=== PATIENT | male | born 1975 | race Caucasian/White ===

== ENCOUNTER 2023-05-18 07:48 | Emergency (ER) | payer BC ==
[2023-05-18] MEDS ORDERED: Tetracaine HCl/PF 0.5% 4 ML Bottle EYERT STA (08:12)
[2023-05-18] MEDS ORDERED: Fluorescein 1 MG Ophth Strip EYERT ONE (08:13)
[2023-05-18 09:06] LABS: BASOPHILS PERCENT AUTO 0.3 % (0.0-1.5); EOSINOPHILS ABSOLUTE AUTO 0.4 K/uL (0.0-0.7); HEMATOCRIT 45.3 % (38.0-50.0); HEMOGLOBIN 15.8 g/dL (13.0-17.0); LYMPHOCYTES ABSOLUTE AUTO 2.3 K/uL (0.6-2.4); LYMPHOCYTES PERCENT AUTO 29.7 % (16.0-40.0); MEAN CORPUSCULAR HEMOGLOBIN 31.2 pg (27.0-32.0); MEAN CORPUSCULAR HGB CONC 34.9 g/dL (31.0-37.0); MEAN CORPUSCULAR VOLUME 89.5 fL (80.0-98.0); MONOCYTES ABSOLUTE AUTO 0.9 K/uL (0.0-0.8); NEUTROPHILS ABSOLUTE AUTO 4.2 K/uL (1.4-5.7); PLATELET COUNT,PLT 227 K/uL (150-400); RED BLOOD CELL COUNT 5.06 M/uL (4.50-5.90); WHITE BLOOD CELL COUNT,WBC 7.79 K/uL (4.0-11.0)
[2023-05-18 09:28] LABS: A/G RATIO 1.2 (0.9-1.6); ALBUMIN 3.9 g/dL (3.4-5.0); BILIRUBIN TOTAL 0.4 mg/dL (0.2-1.0); CALCIUM 8.9 mg/dL (8.5-10.1); CARBON DIOXIDE,CO2 29.5 mmol/L (21.0-32.0); EST CRCL DRUG DOSING (CG) 92.3 mL/min; PROTEIN TOTAL,TP 7.2 g/dL (6.4-8.2); URIC ACID 6.9 mg/dL (2.6-7.2)
[2023-05-18] MEDS ORDERED: Naproxen 500 MG Tab PO ONE (10:23)
== END 2023-05-18 11:11 | disposition home or self-care (01) ==
LOC: MW.ED 07:48
DX: M79.675 Pain in left toe(s) (principal); Z88.0 Allergy status to penicillin
CPT/HCPCS: 36415; 80053; 84550; 85025; 99283; A9270

== ENCOUNTER 2024-06-27 15:55 | Emergency (ER) | payer BC | END 2024-06-27 17:17 | disposition left against medical advice (07) | LOC: MW.ED 15:55 | DX: Z53.21 Procedure and treatment not carried out due to patient leaving prior to being seen by health care provider (principal) ==

== ENCOUNTER 2024-06-27 20:06 | Emergency (ER) | payer BC ==
[2024-06-27 21:04] LABS: APPEARANCE,URINE CLEAR; BILIRUBIN,URINE NEGATIVE (NEGATIVE); COLOR,URINE YELLOW; GLUCOSE,URINE NEGATIVE (NEGATIVE); KETONES,URINE NEGATIVE (NEGATIVE); LEUKOCYTE ESTERASE,URINE NEGATIVE (NEGATIVE); NITRITE,URINE NEGATIVE (NEGATIVE); OCCULT BLOOD,URINE NEGATIVE (NEGATIVE); PROTEIN,URINE NEGATIVE (NEGATIVE); UROBILINOGEN,URINE 0.2 EU/dL (<2.0)
[2024-06-27 21:15] LABS: BASOPHILS ABSOLUTE AUTO 0.06 K/uL (0.00-0.20); BASOPHILS PERCENT AUTO 0.7 % (0.0-1.0); EOSINOPHILS ABSOLUTE AUTO 0.69 K/uL (0.00-0.45); EOSINOPHILS PERCENT AUTO 7.7 % (0.0-6.0); HEMATOCRIT 48.3 % (42.0-52.0); HEMOGLOBIN 16.9 g/dL (14.0-18.0); IMMATURE GRAN ABSOLUTE AUTO 0.02 K/uL (0.00-0.05); IMMATURE GRAN PERCENT AUTO 0.2 % (0.0-0.4); LYMPHOCYTES PERCENT AUTO 34.6 % (24.0-44.0); MEAN CORPUSCULAR HEMOGLOBIN 32.1 pg (28.0-32.0); MEAN CORPUSCULAR VOLUME 91.8 fL (83.0-99.0); MEAN PLATELET VOLUME 9.5 fL (9.4-12.4); MONOCYTES ABSOLUTE AUTO 0.82 K/uL (0.00-0.80); MONOCYTES PERCENT AUTO 9.1 % (0.0-8.0); NEUTROPHILS ABSOLUTE AUTO 4.28 K/uL (1.80-7.70); NEUTROPHILS PERCENT AUTO 47.7 % (41.0-71.0); PLATELET COUNT,PLT 297 K/uL (150-400); RED BLOOD CELL COUNT 5.26 M/uL (4.52-5.90); WHITE BLOOD CELL COUNT,WBC 8.97 K/uL (3.9-11.3)
[2024-06-27 21:39] LABS: A/G RATIO 1.2 (0.9-1.6); ALBUMIN 4.5 g/dL (3.4-5.0); BILIRUBIN TOTAL 0.3 mg/dL (0.2-1.0); CALCIUM 9.6 mg/dL (8.5-10.1); CARBON DIOXIDE,CO2 28.8 mmol/L (21.0-32.0); EST CRCL DRUG DOSING (CG) 91.32 mL/min; PROTEIN TOTAL,TP 8.3 g/dL (6.4-8.2)
== END 2024-06-27 22:40 | disposition home or self-care (01) ==
LOC: MW.ED 20:06
DX: R10.31 Right lower quadrant pain (principal); Z88.0 Allergy status to penicillin; Z79.899 Other long term (current) drug therapy; Z75.8 Other problems related to medical facilities and other health care
CPT/HCPCS: 36415; 74176; 74176-26; 80053; 81003; 83690; 85025; 99283; 99284

== ENCOUNTER 2024-07-06 08:00 | Day surgery (SDC) | payer BC ==
[~2024-07-06 08:00] MED LIST: Albuterol 0.083% 2.5 MG/3 ML Neb Soln NEB PRN; HYDROmorphone 1 MG/ML Syringe IVPUSH PRN; Metoclopramide 10 MG/2 ML SDV IVPUSH PRN; Morphine 2 MG/ML SYRINGE IVPUSH PRN; Naloxone 0.4 MG/ML SDV IVPUSH PRN; Ondansetron 4 MG/2 ML SDV IVPUSH PRN; droPERidol 5 MG/2 ML SDV IVPUSH PRN
[2024-07-06] MEDS: Lactated Ringers 1,000 ML IV SCH (08:57)
[2024-07-06] MEDS ORDERED: Bupivacaine 0.5% 30 ML SDV ONE (09:22)
[2024-07-06] MEDS ORDERED: ceFAZolin 1 GM Vial ONE ×2 (09:22→10:16)
[2024-07-06] MEDS ORDERED: Sugammadex Sodium 200 MG/2 ML VIAL IV ONE (09:36)
[2024-07-06] MEDS ORDERED: Propofol 200 MG/20 ML SDV ONE (09:36)
[2024-07-06] MEDS ORDERED: Dexamethasone 4 MG/ML 5 ML MDV ONE (09:36)
[2024-07-06] MEDS ORDERED: Rocuronium Bromide 50 MG/5 ML Syringe ONE (09:36)
[2024-07-06] MEDS ORDERED: Lidocaine 2% 5 ML SDV ONE (09:36)
[2024-07-06] MEDS ORDERED: fentaNYL 100 MCG/2 ML SDV ONE ×2 (09:36→10:36)
[2024-07-06] MEDS ORDERED: Ketorolac 30 MG/ML SDV ONE (09:36)
[2024-07-06] MEDS ORDERED: Ondansetron 4 MG/2 ML SDV ONE (09:36)
[2024-07-06] MEDS ORDERED: Ketamine HCL/NACL, ISO-OSM 50 MG/5 ML Syringe ONE (09:41)
[2024-07-06] MEDS ORDERED: Ropivacaine 0.5% 5 MG/ML 30 ML SDV ONE (09:45)
[2024-07-06] MEDS ORDERED: Morphine 4 MG/ML Syringe IVPUSH PRN (12:13)
[2024-07-06] MEDS ORDERED: Acetaminophen/HYDROcodone 325-5 MG Tab PO PRN (12:13)
[2024-07-06] MEDS: fentaNYL 50 MCG/ML SDV IVPUSH PRN (12:15)
[2024-07-06] MEDS ORDERED: Lactated Ringers 1,000 ML IV SCH (12:15)
== END 2024-07-06 13:52 | disposition home or self-care (01) ==
LOC: MW.SDS 08:00
PROVIDERS: ATTEND Surgery
DX: K40.90 Unilateral inguinal hernia, without obstruction or gangrene, not specified as recurrent (principal); N40.0 Benign prostatic hyperplasia without lower urinary tract symptoms; F17.210 Nicotine dependence, cigarettes, uncomplicated; Z79.899 Other long term (current) drug therapy; Z88.0 Allergy status to penicillin
CPT/HCPCS: 49505; C1781; J0131; J0665; J0690; J1100; J1885; J2405; J2704; J2795; J3010; J3490; J7120